=== PATIENT | male | born 1970 | race Caucasian/White ===

== ENCOUNTER 2019-08-11 12:40 | Emergency (ER) | payer OTHER ==
[2019-08-11] MEDS ORDERED: Cyclobenzaprine 10 MG Tab PO ONE (14:19)
[2019-08-11] MEDS ORDERED: Ketorolac 60 MG/2 ML SDV IM ONE (14:19)
--- NOTE | 2019-08-11 14:22 | EDM.PDOC ---
ED HPI GENERAL MEDICAL PROBLEM - General Chief Complaint: Neck Problem Stated Complaint: BACK/NECK PAIN Time Seen by Provider: 08/11/19 14:16 Source of Information: Reports: Patient, Family, RN Notes Reviewed History Limitations: Reports: No Limitations - History of Present Illness INITIAL COMMENTS - FREE TEXT/NARRATIVE: 49-year-old gentleman presents emergency department with a complaint of upper back and neck pain, he states he injured himself maybe about a week ago had sought some primary care nurse was doing well at home. [place] he admits he may have overdid it [place] sleep in [place] different bed now is extremely stiff in the shoulder rhomboid region with pain no loss of bowel or bladder no fevers Nare Pain Score (Numeric/FACES): 9 Neck Pain Score (Numeric/FACES): 3 - Related Data Allergies Allergy/AdvReac Type Severity Reaction Status Date / Time No Known Allergies Allergy Verified 08/11/19 13:56 Home Meds: Home Meds Ibuprofen [Advil] 200 mg PO TID 08/11/19 [History] Past Medical History HEENT History: Reports: Hard of Hearing Endocrine/Metabolic History: Reports: Obesity/BMI 30+ - Past Surgical History Musculoskeletal Surgical History: Reports: Other (See Below) Other Musculoskeletal Surgeries/Procedures:: Meniscus surgery Social & Family History - Tobacco Use Smoking Status *Q: Former Smoker Used Tobacco, but Quit: Yes Month/Year Tobacco Last Used: 3 yrs ago - Caffeine Use Caffeine Use: Reports: Coffee - Alcohol Use Days Per Week of Alcohol Use: 2 Number of Drinks Per Day: 2 Total Drinks Per Week: 4 - Recreational Drug Use Recreational Drug Use: No ED ROS GENERAL - Review of Systems Review Of Systems: See Below Constitutional: Denies: Fever HEENT: Reports: No Symptoms Respiratory: Reports: No Symptoms Cardiovascular: Reports: Dyspnea on Exertion GI/Abdominal: Reports: No Symptoms Musculoskeletal: Reports: Neck Pain, Shoulder Pain Neurological: Reports: No Symptoms ED EXAM, UPPER BACK/NECK PAIN - Physical Exam Exam: See Below Exam Limited By: No Limitations General Appearance: Alert, WD/WN, No Apparent Distress Neck Exam: Full Range of Motion, Normal Alignment, Normal Inspection, Stiff Neck, Tenderness, Tender Lateral. No: Spinous Processes Tender, Tender Midline Nexus Criteria: No: Posterior, Midline Cervical Tenderness, Evidence of Intoxication, Altered Level of Consciousness, Focal Neurological Deficit, Painful Distraction Injuries Course - Vital Signs Last Recorded V/S: Last Vital Signs Temp 93.9 F L 08/11/19 13:51 Pulse 78 08/11/19 15:07 Resp 16 08/11/19 15:07 BP 137/91 H 08/11/19 15:07 Pulse Ox 96 08/11/19 14:04 - Orders/Labs/Meds Meds: Medications Discontinued Medications Generic Name Dose Route Start Last Admin Trade Name Libby PRN Reason Stop Dose Admin Cyclobenzaprine HCl 10 mg 08/11/19 14:19 08/11/19 14:30 Flexeril PO 08/11/19 14:20 10 mg ONETIME ONE Administration Ketorolac Tromethamine 60 mg 08/11/19 14:19 08/11/19 14:31 Toradol IM 08/11/19 14:20 60 mg ONETIME ONE Administration Departure - Departure Time of Disposition: 15:17 Disposition: Home, Self-Care 01 Condition: Fair Clinical Impression: Rhomboid muscle strain Qualifiers: Encounter type: initial encounter Qualified Code(s): S29.012A - Strain of muscle and tendon of back wall of thorax, initial encounter - Discharge Information Instructions: Cyclobenzaprine tablets, Ketorolac injection, Muscle Strain Referrals: PCP,None [Primary Care Provider] - Forms: ED Department Discharge Additional Instructions: Continue to use ibuprofen as needed for pain control, try the Flexeril as needed for muscle relaxant, please followup with your primary care provider in 3-5 days if not better, please call return to the emergency department with wor sening of symptoms. Sepsis Event Note (ED) - Evaluation Sepsis Screening Result: No Definite Risk - Focused Exam Vital Signs: Vital Signs Temp Pulse Resp BP Pulse Ox 08/11/19 15:07 78 16 137/91 H 08/11/19 14:38 79 16 143/90 H 08/11/19 14:04 88 17 157/94 H 96 08/11/19 13:51 93.9 F L 88 17 157/94 H 96 - Assessment/Plan Plan: Assessment Acuity = acute Site and laterality = rhomboid strain Etiology = secondary to overuse injury Manifestations = pain Location of injury = Home Lab values = none Plan Good improvement with Flexeril and Toradol provided in the ED prescription written for Flexeril 10 mg p.o. 3 times daily PRN total #30 and follow-up with his primary care upon return home if not better This note was dictated using [employer] voice recognition software please call with any questions on syntax or grammar.
== END 2019-08-11 15:25 | disposition home or self-care (01) ==
LOC: JP.ED 12:40
DX: S29.012A Strain of muscle and tendon of back wall of thorax, initial encounter (principal); E66.9 Obesity, unspecified; Z87.891 Personal history of nicotine dependence; Z68.32 Body mass index [BMI] 32.0-32.9, adult; X50.9XXA Other and unspecified overexertion or strenuous movements or postures, initial encounter
CPT/HCPCS: 96372; 99283; A9270; J1885